=== PATIENT | male | born 1985 | race African-American/Black ===

== ENCOUNTER 2024-01-23 18:06 | Inpatient (IN) ==
--- NOTE | 2024-01-23 18:30 | Emergency Department Note ---
Impression & Plan Paranoid delusion ADMIT ED Provider Note HPI: History obtained from patient and patient's sister at the bedside. The patient is a 38-year-old gentleman who presents the emergency department with chief complaint of paranoid behavior. Patient presents with his sister at the bedside, she states that the patient has been exhibiting some paranoid behavior recently, he also has not been sleeping. Patient's sister states that the patient has been frequently moving to different family members houses "to get away from people". Patient states that he does believe that people are coming to try and hurt him that he was associated with in his past. He also states that at times he does think that he might be hearing voices that other people do not hear. Patient's sister states that the patient has been in trouble recently with the law because he has been trying to break into people's houses "to get help" when he believes that other people are trying to hurt him. Patient denies any suicidal or homicidal ideation, on arrival here to the ED the patient is calm and cooperative, he denies any recent drug or alcohol use. Patient does note that he recently had an inpatient psychiatric stay at [facility]. He states he was just discharged home several days ago. ROS: - Per HPI Differential Diagnosis: Paranoid delusions, acute psychosis, drug-induced psychosis, bipolar disorder with acute emil, amongst other potential pathologies. *Outpatient medications and allergy history reviewed. PE: General: Alert HEENT: Normocephalic, trachea midline Eyes: Extraocular eye movement is intact, no scleral erythema Pulmonary: Clear to auscultation bilaterally, no wheezing Cardio: Regular rate and rhythm GI: Abdomen is soft to palpation : No suprapubic tenderness MSK: No evidence of trauma or malformation of the extremities, no edema Skin: No evidence of rash Neuro: Alert, no focal deficits Psychiatric: Cooperative INDEPENDENT INTERPRETATIONS: EKG: (As interpreted by myself): Rate: 48 Rhythm: Sinus rhythm Intervals: Within normal limits ST changes: No ST elevation Time: 1834 Medical Decision Making: Lab work was obtained, there is a mild leukopenia at 4.53, hemoglobin is stable at 12.1, platelet count is normal, CMP does not show any evidence of any critical findings, EKG per my interpretation shows sinus bradycardia without any acute ischemic changes. Urine drug screen is positive for marijuana, alcohol is negative. COVID testing is negative. Patient was medically cleared to be assessed by case management for psychiatric placement. Patient is currently voluntary. He is not suicidal or homicidal however he does admit to some paranoid delusions, family has concern about his safety. Patient is agreeable for voluntary admission. Patient was assessed for admission by 3 S. and he was accepted. Patient was transferred to the behavioral health unit in stable condition for further care. Consultants/Discussions held with other healthcare providers: -Case management Diagnosis: 1. Paranoid delusions, acute 2. Insomnia, acute 3. Auditory hallucinations, acute Disposition: Admission to [facility] under 201 Isaak Polanco DO Emergency Medicine Past Med/Surg History Problem List (Updated 01/24/24 @ 00:47 by Isaak Polanco DO) Paranoid delusion (Acute) Social History Smoking Status: Current every day smoker Tobacco Type: E-cigarettes / Vaping Preferred Language: Syriac Feels Safe at Home: Yes Gender Identity: Male Results & Data (ED) Vital Signs Vital Signs - 24 hr 01/23/24 18:12 01/24/24 00:13 Temperature 36.6 C 36.8 C Temperature Source Temporal Artery Scan Oral Pulse Rate 68 Pulse Rate [Finger] 56 L Respiratory Rate 20 18 Respiratory Effort / Characteristics Non-Labored Non-Labored Spontaneous Respiratory Depth Normal Normal Blood Pressure 155/82 H Blood Pressure [Right Arm] 125/70 Blood Pressure Mean 106 Blood Pressure Mean [Right Arm] 88 Pulse Oximetry 99 98 Oxygen Delivery Method Room Air Room Air Sepsis Recent Fever Within 48 Hours No Sepsis New/Unexplained Change in Mental Status No Sepsis Action Taken by Nursing No Action Required Laboratory Data 01/23/24 18:54 01/23/24 18:54 Lab Results 01/23/24 01/23/24 01/23/24 Range/Units 18:54 20:25 22:00 WBC 4.53 L (4.8-10.8) K/ul RBC 4.06 L (4.70-6.10) M/uL Hgb 12.1 L (14.0-18.0) g/dl Hct 37.1 L (42.0-52.0) % MCV 91.4 (80.0-100.0) fL MCH 29.8 (25.0-34.0) pg MCHC 32.6 (32.0-36.0) g/dL RDW Std Deviation 40.5 (36.4-46.3) fL RDW Coeff of Yazmin 12.0 (11.5-14.5) % Plt Count 211 (130-400) K/uL MPV 9.7 (9.4-12.4) fL Immature Gran % (Auto) 0.2 % Neut % (Auto) 58.7 % Lymph % (Auto) 29.4 % Hand % (Auto) 8.8 % Eos % (Auto) 2.2 % Baso % (Auto) 0.7 % Neut # (Auto) 2.66 (1.40-6.50) K/uL Lymph # (Auto) 1.33 (1.20-3.40) K/uL Hand # (Auto) 0.40 (0.11-0.59) K/uL Eos # (Auto) 0.10 (0.00-0.50) K/uL Baso # (Auto) 0.03 (0.00-0.20) K/uL Immature Gran # (Auto) 0.01 (0.01-0.20) K/uL Sodium 139 (136-145) mmol/L Potassium 4.0 (3.5-5.1) mmol/L Chloride 104 (98-107) mmol/L Carbon Dioxide 30 (21-32) mmol/L Anion Gap 5 (3-11) BUN 17 (6-23) mg/dl Creatinine 1.12 (0.6-1.4) mg/dl Est Cr Clr Drug Dosing 99.1 ml/min eGFR 85.17 BUN/Creatinine Ratio 15.2 (10-20) Glucose 123 H (70-99(Fasting)) mg/dl Calcium 8.6 (8.6-10.3) mg/dl Total Bilirubin 0.3 (0.2-1.0) mg/dl AST 31 (13-39) U/L ALT 20 (7-52) U/L Alkaline Phosphatase 51 (34-104) U/L Total Protein 6.6 (6.0-8.3) gm/dl Albumin 4.0 (3.4-5.0) gm/dl Globulin 2.6 (2.5-4.0) gm/dl Albumin/Globulin Ratio 1.5 (0.9-2) TSH 1.014 (0.300-4.500) uIu/ml Urine Color Yellow Urine Appearance Clear (Clear) Urine pH 7.0 (4.5-7.5) Ur Specific [place] 1.020 (1.000-1.030) Urine Protein Negative (Negative) Urine Glucose (UA) Negative (Negative) Urine Ketones Trace H (Negative) Urine Blood Negative (Negative) Urine Nitrite Negative (Negative) Urine Bilirubin Negative (Negative) Urine Urobilinogen Negative (Negative) Ur Leukocyte Esterase Negative (Negative) Nasal Screen MRSA (PCR) Negative (Negative) Salicylates < 3.0 L (3.0-30) mg/dl Urine Opiates Screen Neg (Neg) Ur Methadone, Qual Neg (Neg) Urine Fentanyl Screen Neg (Neg) Acetaminophen < 3 L (10-30) ug/ml Urine Barbiturates Neg (Neg) Ur Phencyclidine (PCP) Neg (Neg) U Amphetamin/Meth Scrn Neg (Neg) MDMA (Ecstasy) Screen Neg (Neg) U Benzodiazepines Scrn Neg (Neg) Ur Cocaine Metabolite Neg (Neg) U Marijuana (THC) Screen Pos H (Neg) Ethyl Alcohol mg/dL < 10.0 (<10.0) mg/dl SARS-CoV-2, RNA, NAAT NEGATIVE (NEGATIVE) Discharge Plan Visit Data Chief Complaint: Mental Health Evaluation Stated Complaint: MENTAL HEALTH ED Provider: Isaak Polanco Discharge Problem: Paranoid delusion Forms Stand Alone Forms: My [facility], Suicide Prevention Resources Referrals Referrals: PCP,NO [Physician] -
[2024-01-23 19:13] LABS: Basophils # (auto) 0.03 K/uL (0.00-0.20); Basophils % (auto) 0.7 %; Eosinophils % (auto) 2.2 %; Hematocrit (blood only) 37.1 % (42.0-52.0); Hemoglobin 12.1 g/dl (14.0-18.0); Immature Granulocytes # (auto) 0.01 K/uL (0.01-0.20); Immature Granulocytes % (auto) 0.2 %; Lymphocytes # (auto) 1.33 K/uL (1.20-3.40); Lymphocytes % (auto) 29.4 %; Mean Corpuscular Hemoglobin 29.8 pg (25.0-34.0); Mean Corpuscular Hgb Conc 32.6 g/dL (32.0-36.0); Mean Corpuscular Volume 91.4 fL (80.0-100.0); Mean Platelet Volume 9.7 fL (9.4-12.4); Monocytes % (auto) 8.8 %; Neutrophils # (auto) 2.66 K/uL (1.40-6.50); Neutrophils % (auto) 58.7 %; Platelet Count 211 K/uL (130-400); RDW Standard Deviation 40.5 fL (36.4-46.3); Red Blood Count 4.06 M/uL (4.70-6.10); White Blood Count 4.53 K/ul (4.8-10.8)
[2024-01-23 19:31] LABS: Albumin Globulin Ratio 1.5 (0.9-2); BUN Creatinine Ratio 15.2 (10-20); Bilirubin,Total 0.3 mg/dl (0.2-1.0); Calcium 8.6 mg/dl (8.6-10.3); Creatinine Clr Calc Pharmacy 99.1 ml/min; Globulin 2.6 gm/dl (2.5-4.0); Total Protein 6.6 gm/dl (6.0-8.3)
[2024-01-23 19:33] LABS: Acetaminophen < 3 ug/ml (10-30); Salicylate < 3.0 mg/dl (3.0-30)
[2024-01-23 19:45] LABS: Thyroid Stimulating Hormone 1.014 uIu/ml (0.300-4.500)
[2024-01-23 20:45] LABS: Appearance Urine Clear (Clear); Bilirubin Urine Negative (Negative); Blood Urine Negative (Negative); Color Urine Yellow; Glucose Urine UA Negative (Negative); Ketones Urine Trace (Negative); Leukocyte Esterase Urine Negative (Negative); Nitrite Urine Negative (Negative); Protein Urine Negative (Negative); Urobilinogen Urine Negative (Negative)
[2024-01-23 21:29] LABS: Amphetamines+Metham, Urine Neg (Neg); Barbiturates, Urine Neg (Neg); Benzodiazepine, Urine Neg (Neg); Cocaine, Urine Neg (Neg); Fentanyl, Urine Neg (Neg); MDMA (Ecstacy), Urine Neg (Neg); Marijuana, Urine Pos (Neg); Methadone, Urine Neg (Neg); Opiate, Urine Neg (Neg); Phencyclidine, Urine Neg (Neg)
[2024-01-24] MEDS ORDERED: BISMUTH SUBSALICYLATE 262 MG CHEW PO PRN (01:13)
[2024-01-24] MEDS ORDERED: hydrOXYzine HCl 25 MG TAB PO PRN ×2 (01:13)
[2024-01-24] MEDS ORDERED: MAGNESIUM HYDROXIDE SUSP 30 ML UDC PO PRN (01:13)
[2024-01-24] MEDS ORDERED: ACETAMINOPHEN 325 MG TAB PO PRN (01:13)
[2024-01-24] MEDS ORDERED: ALUMINUM/MAGNESIUM SUSP 30 ML UDC PO PRN (01:13)
[2024-01-24] MEDS ORDERED: SODIUM CHLORIDE 0.65% NA SOLN 45 ML (OCEAN) PRN (01:13)
[2024-01-24] MEDS: BUPRENORPHINE/NALOXONE 8/2 MG TAB SL SCH (09:26)
--- NOTE | 2024-01-24 13:52 | History & Physical ---
Date of Service January 24, 2024 Impression / Recommendations Impression 38 yr old M admitted on a 201 for paranoia and bizarre behavior, following recent release from [facility] after 13 yrs. Presents with some paranoia, however is able to reality test adequately and with no other symptoms of psychosis observed during his stay thus far. No prior history of such symptoms and with what sounds like a relatively quick onset. Patient had recently been started on Adderall XR for ADHD, however it seems that these symptoms started some time after he was no longer taking it (would need to verify this). At this time it is unclear if this is a stimulant induced psychosis vs PTSD-related w/ recent [facility] release and very poor coping skills (ie brief psychotic episode) vs underlying psychotic disorder. He does not appear to have a thought disorder, however based on sisters report he is much improved now so would need to assess further. (1) Unspecified psychosis not due to a substance or known physiological condition: Plan Trial of guanfacine 0.5mg BID for possible ADHD as well as can help decrease any trauma reactions he may be experiencing and any anxiety relating to recent events - HR is low so may not be able to take, will reasses in AM Would defer antipsychotic as presentation is unclear and he is not currently overtly psychotic and does express wanting to avoid antipsychotics if possible, is aware however that if his symptoms return/worsen this medication would be indicated and is agreeable Continued inpatient hospitalization is medically necessary for ongoing monitoring and safety. The patient was admitted to the [facility] ([facility] mental health unit) on q15 min checks (behavioral with suicide precautions) for safety. The patient will participate in group, recreational, and milieu therapies and will be offered additional individual and family sessions as clinically appropriate. Overall, I spent a total of 60 minutes with this case, including review of chart, direct evaluation of the patient, counseling the patient, ordering medication, coordination with nursing, risk assessment, and documentation. Inventory Assets Strengths: supportive family Needs: adjusting to release from [facility] Suicide Risk Level Suicide Risk Level: Moderate (q15 min suicide checks) Risk Factors Assessment Male: Yes : No Do You Have Access To A Gun?: No Health Problems: No Mental Health Diagnoses: No Substance Use Disorders: Yes Previous Attempt: No Family History of Suicide: No Previous Psychiatric Hospitalization: Yes Hopelessness: No Protective Factors Assessment : No Responsible for Young Children: No Employed: No Stable Relationships: Yes Supportive Family: Yes Good Rapport with Provider: Yes Absence of Any Risk Factors Above: Yes Psychiatric History Identifying Data SINDI CHIRINOS is a 38-year-old M who currently lives with his sister, has no prior psychiatric history, and was admitted on 01/24/24 00:22 on a 201 voluntary commitment for concerns of psychosis with paranoia. Chief Complaint "I'm just trying to figure out what's going on". History of Present Illness 38 yr old M who presented to ED due to paranoia. Patients sister was present at bedside while he was in the ED - she reported that he has not been sleeping, has been paranoid and bizarre in behavior. Possibly has been hearing voices but this is unclear. Sister also reported that patient has been going into people's homes "to get help" from whoever he thinks is after him. Had recent admission at [facility] for similar reasons, discharged several days prior. Patient is pleasant and cooperatve throughout interview. He denies AVH, though does describe recent paranoia and some IOR. He describes this as all being related to a relationship he is in the past few months - it seems that he has been paranoid about his gf plotting against him in some way, or working together with someone that is after him. Describes statements made by her or things on her phone that he interprets as having a sinister meaning, says that this has been increasingly more distressing in particular as he has never experienced something like this before. Reports no prior psychiatric history. Says this all feels "overwhelming" because it is such a new experience. Also released from [facility] Apr 2023 after serving 13 years. Of note, patient is able to identify that his paranoia is not reality based - when he talks about it, he does seem to have difficulty with not becoming engrossed by the paranoia, but is observed to spontaneously recognize this and self-redirect. Denies paranoia or other symptoms of psychosis outside of this. Denies AVH. Denies depression. Denies anxiety outside of that relating to the above paranoia. He also reports that he was seeing an outpatient psychiatrist who diagnosed him with ADHD and started him on Adderall XR. Says that he was initially hesitant, but that once he started the medication he felt much "clearer" and able to focus without the excessive distractibility that usually interferes. Describes racing thoughts, inattention, restlessness and distractibility since childhood - says that after starting the medication this all improved and he felt calmer and better able to manage restlessness & impulsivity. Sleep reportedly also improved - has always had difficulty falling asleep, but when taking the Adderall XR was able to fall asleep more easily and felt well rested in the mornings. It seems that for some reason the prescription was stopped, possibly due to a missed appointment or something of that nature, and he describes these symptoms quickly returning again, including difficulty sleeping. Some time after this it seems that paranoia and odd behaviors started, with worsening leading up to hospitalization at [facility] at which time he was started on Zyprexa. Describes feeling overly sedated by it and slow, did not want to continue taking it once out of the hospital. Saw his psychiatrist at that point and it seems that they did not want to restart the Adderall due to his being hospitalized for psychosis. Did provide patient today with psychoeducation as to why this would be a concern, which he was receptive to. Patient says he would prefer not to take something like zyprexa due to significant negative effects, however is agreeable to whatever treatment plan is recommended. To note, while on the unit he has been calm and cooperative. Initially was in his room and guarded, but progressively acclimating and participating in groups. Has not been observed talking to himself, does not appear internally preoccupied - is overall interacting in the milieu appropriately. Past Psychiatric History Previous Psych History: [facility] recently, none prior Current Psychiatric Diagnosis: ADHD Outpatient Services: Was seeing psychiatrist this past year, none prior Previous Psych Admissions: see above Do You Have Access To A Gun?: No History of Previous Suicide Attempt: No Past Medication Trials: None Allergies Allergy/AdvReac Type Severity Reaction Status Date / Time No Known Allergies Allergy Unverified 01/24/24 01:10 Home Medications Medication Instructions Recorded Confirmed Type buprenorphine 8 mg-naloxone 2 mg 1 tab sublingual BID 01/24/24 01/25/24 History sublingual tablet olanzapine 2.5 mg tablet 2.5 mg PO BID 01/24/24 01/25/24 History Family History Family History of: Doesn't Know Alcohol History Hx of Alcohol Use Over the Past 12 Months: No (Once a week. 2-3 drinks per occasion) AUDIT Total Score: 3 Smoking Use Have You Smoked or Used Tobacco Products in the Last 30 Days: Yes tobacco type: e-cigarettes Smoking Status: Current every day smoker Substance History Hx of Prescription Med Misuse Over the Past 12 Months: No (denies) Hx of Over the Counter Med Misuse Over the Past 12 Months: No (denies) Hx of Inhalent Misuse Over the Past 12 Months: No (denies) Hx of Organic Substance Use Over the Past 12 Months: No (Marijuana few times per week) Hx of Illegal Substances/Street Drug Use Over Past 12 Months: No (denies) Problems as a Result of Past Substance Use: None Identified Suboxone 8mg BID, verified dosing from clinic Personal History Living Arrangements: Home Living Arrangements Comments: living with sister Stefani Highest Grade Completed: High School Graduate Marital Status: Single Number Of Children: 0 Beliefs That Will Affect Care: None Hx Legal Problems: Yes (served 13 yrs in [facility] for manufacturing with intent to distribute) Additional Comments: served 13 yrs in [facility] for manufacturing with intent to distribute, released on parole Apr 2023 Patient History Social History Smoking Status: Current every day smoker Tobacco Type: E-cigarettes / Vaping Preferred Language: Albanian Communication Ability: Effective Linux Architect Required: No Beliefs That Will Affect Care: None Feels Safe at Home: Yes Gender Identity: Male Assistive Devices: None Physical Exam Psychiatric: Orientation: alert and oriented x 3 Apperance: appropriately dressed, appropriately groomed and appeared stated age Eye Contact: + fair eye contact Motor Behavior: steady gait and station and no abnormal motor movements Speech: normal rate/rhythm/volume of speech (logorrheic but interruptible) Affect: + constricted affect Mood: + anxious mood Thought Process: goal directed thought process and + circumstantial thought process Thought Content: + paranoid (able to reality test appropriately however) Suicidal Thoughts: denies suicidal thoughts, denies suicidal plan and denies suicidal intent Homicidal Thoughts: denies homicidal thoughts Hallucinations: no auditory hallucinations and no visual hallucinations Cognition: recent memory grossly intact, remote memory grossly intact, attention grossly intact and language grossly intact Estimated Intelligence: average estimated intelligence Insight: + limited insight Judgment: + limited judgement Vital Signs (Past 24 Hours): Last Vital Signs Temp 36.6 C 01/24/24 06:38 Pulse 41 L 01/24/24 06:50 Resp 16 01/24/24 06:50 BP 121/72 01/24/24 06:39 Pulse Ox 100 01/24/24 01:43 O2 Del Method Room Air 01/24/24 01:43 Exam Statement: A physical exam was performed in the ED by Dr. Polanco for the purposes of medical clearance. I accept that physical as correct and adequate for the purposes of the inpatient physical exam. Results & Data ([facility]) Laboratory Results Laboratory Results - last 24 hr 01/23/24 01/23/24 01/23/24 18:54 20:25 22:00 WBC 4.53 L RBC 4.06 L Hgb 12.1 L Hct 37.1 L MCV 91.4 MCH 29.8 MCHC 32.6 RDW Std Deviation 40.5 RDW Coeff of Yazmin 12.0 Plt Count 211 MPV 9.7 Immature Gran % (Auto) 0.2 Neut % (Auto) 58.7 Lymph % (Auto) 29.4 [place] % (Auto) 8.8 Eos % (Auto) 2.2 Baso % (Auto) 0.7 Neut # (Auto) 2.66 Lymph # (Auto) 1.33 [place] # (Auto) 0.40 Eos # (Auto) 0.10 Baso # (Auto) 0.03 Immature Gran # (Auto) 0.01 Sodium 139 Potassium 4.0 Chloride 104 Carbon Dioxide 30 Anion Gap 5 BUN 17 Creatinine 1.12 Est Cr Clr Drug Dosing 99.1 eGFR 85.17 BUN/Creatinine Ratio 15.2 Glucose 123 H Calcium 8.6 Total Bilirubin 0.3 AST 31 ALT 20 Alkaline Phosphatase 51 Total Protein 6.6 Albumin 4.0 Globulin 2.6 Albumin/Globulin Ratio 1.5 TSH 1.014 Urine Color Yellow Urine Appearance Clear Urine pH 7.0 Ur Specific [place] 1.020 Urine Protein Negative Urine Glucose (UA) Negative Urine Ketones Trace H Urine Blood Negative Urine Nitrite Negative Urine Bilirubin Negative Urine Urobilinogen Negative Ur Leukocyte Esterase Negative Nasal Screen MRSA (PCR) Negative Salicylates < 3.0 L Urine Opiates Screen Neg Ur Methadone, Qual Neg Urine Fentanyl Screen Neg Acetaminophen < 3 L Urine Barbiturates Neg Ur Phencyclidine (PCP) Neg U Amphetamin/Meth Scrn Neg MDMA (Ecstasy) Screen Neg U Benzodiazepines Scrn Neg Ur Cocaine Metabolite Neg U Marijuana (THC) Screen Pos H U Marijuana THC Carboxy Pending Drug Screen Comment Pending Ethyl Alcohol mg/dL < 10.0 SARS-CoV-2, RNA, NAAT NEGATIVE Current Inpatient Medications Current Inpatient Medications: Current Inpatient Medications Acetaminophen (Acetaminophen 325 Mg Tab) 650 mg PO Q4H PRN PRN Reason: Headache or Minor Fever Stop: 02/23/24 01:12 Al Hydrox/Mg Hydrox/Simethicone (Aluminum/Magnesium Susp 30 Ml Udc) 30 ml PO Q4H PRN PRN Reason: GI Upset Stop: 02/23/24 01:12 Bismuth Subsalicylate (Bismuth Subsalicylate 262 Mg Chew) 2 tab PO Q30M PRN PRN Reason: Loose Stool/Diarrhea Stop: 02/23/24 01:12 Buprenorphine/Naloxone (Buprenorphine/Naloxone 8/2 Mg Tab) 1 tab SL BID [facility] Stop: 02/23/24 08:59 Last Admin: 01/24/24 09:26 Dose: 1 tab Hydroxyzine HCl (Hydroxyzine Hcl 25 Mg Tab) 50 mg PO HSZ PRN PRN Reason: Insomnia Stop: 02/23/24 01:12 Hydroxyzine HCl (Hydroxyzine Hcl 25 Mg Tab) 25 mg PO Q4H PRN PRN Reason: Anxiety Stop: 02/23/24 01:12 Magnesium Hydroxide (Magnesium Hydroxide Susp 30 Ml Udc) 30 ml PO DAILY PRN PRN Reason: Constipation Stop: 02/23/24 01:12 Miscellaneous (Remove Nicoderm Patch) 1 each N/A DAILY@0859 [facility] Stop: 02/24/24 08:58 Nicotine (Nicotine 21 Mg/24 Hr Tdsy) 1 patch TD QAM [facility] Stop: 02/23/24 13:29 Nicotine Polacrilex (Nicotine Polacrilex 2 Mg Gum) 2 piece MT PRN PRN PRN Reason: Nicotine Withdrawal Symptoms Stop: 02/23/24 01:12 Sodium Chloride (Sodium Chloride 0.65% Na Soln 45 Ml ([place])) 1 - 2 sprays NA PRN PRN PRN Reason: Nasal Dryness/Congestion Stop: 02/23/24 01:12
[2024-01-24] MEDS: NICOTINE 21 MG/24 HR TDSY TD SCH (14:30)
--- NOTE | 2024-01-24 15:10 | Electrocardiogram Report ---
Test Reason : Blood Pressure : */* mmHG Vent. Rate : 48 BPM Atrial Rate : 48 BPM P-R Int : 138 ms QRS Dur : 100 ms QT Int : 406 ms P-R-T Axes : 68 93 57 degrees QTcB Int : 362 ms Sinus bradycardia Rightward axis Incomplete right bundle branch block Borderline ECG No previous ECGs available Confirmed by Juan Cheung ([id number]) on 01/24/2024 3:10:07 PM Referred By: REFERRED SELF Confirmed By: Juan Cheung
[2024-01-24] MEDS ORDERED: traZODone HCL 50 MG TAB PO PRN (19:08)
[2024-01-24] MEDS: guanFACINE HCL 1 MG TAB PO SCH (21:45)
[2024-01-25] MEDS: NICOTINE POLACRILEX 2 MG GUM MT PRN (09:44)
--- NOTE | 2024-01-25 16:11 | Psychiatric Progress Note ---
Date of Service January 25, 2024 Impression / Recommendations Impression 38 yr old M admitted on a 201 for paranoia and bizarre behavior, following recent [facility] from [facility] 13 y[facility]. Presents with some paranoia, however is able to reality test adequately and with no other symptoms of psychosis observed during his stay thus far. No prior history of such symptoms and with what sounds like a relatively quick onset. Patient had previously been started on Adderall XR for ADHD, however it seems that these symptoms started some time after he was no longer taking it At this time it is unclear if this is a stimulant induced psychosis vs PTSD- related w/ recent [facility] release and very poor coping skills (ie brief psychotic episode) vs underlying psychotic disorder. Possibility of lack of sleep following adderal xr discontinuation as contributing factor as well, though as per PDMP it appears that his last fill was few months ago. He does not appear to have a thought disorder as far as has been observed while here. Possibility of misrepresentation in order to obtain stimulant rx must be considered, though patient does indeed present with notable symptoms of ADHD and his report of response to medication is consistent. 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 Discussed risks of addiction potential & risks of psychosis if there is indeed underlying psychosis, patient agreeable to trial while in a safe environment. Patient was able to reasonably & spontaneously discuss that if any concerning symptoms are observed, this medication will be discontinued and antipsychotic started. 01/24/2024: The patient was admitted to the [facility] ([facility]) on q15 min checks (behavioral with suicide precautions) for safety. The patient will participate in group, recreational, and milieu therapies and will be offered additional individual and family sessions as clinically appropriate. Trial of guanfacine 0.5mg BID for possible ADHD as well as can help decrease any trauma reactions he may be experiencing and any anxiety relating to recent events - HR is low so may not be able to take, will reasses in AM Would defer antipsychotic as presentation is unclear and he is not currently overtly psychotic and does express wanting to avoid antipsychotics if possible, is aware however that if his symptoms return/worsen this medication would be indicated and is agreeable Overall, I spent a total of 50 minutes with this case, including review of chart, direct evaluation of the patient, counseling the patient, ordering medication, coordination with nursing, risk assessment, and documentation. Risk Factors Assessment Do You Have Access To A Gun?: No Protective Factors Assessment Employed: No Interval History Identifying Information SINDI CHIRINOS is a 38-year-old M who currently lives with his sister, has no prior psychiatric history, and was admitted on 01/24/24 00:22 on a 201 voluntary commitment for concerns of psychosis with paranoia. Chief Complaint "I'm just trying to figure this out". Review of Systems Sleep Information Total Hours of Sleep: 5 Sleep Comments: Admitted early in shift Meal Information Percent Meal Consumed - Breakfast: 100 Percent Meal Consumed - Lunch: 100 Percent Meal Consumed - Dinner: 100 Nutrition Comment: pt. declined but requests that meal be saved. Meal dated, labeled and refrigerated. Subjective Subjective Patient was seen & assessed and interval progress reviewed with nursing and social work. Patient presents as less preoccupied with paranoia than he was yesterday - does several times start to talk about it but quickly redirects. Acknowledges that he knows if he starts talking or thinking about it too much he may become engrossed in it again. States "it doesn't even matter if it's real or not, it's just not a good situation for me". DIscussed in more detail how it has been adjusting to release from [facility] after 13 yrs, in particular symptoms of PTSD - hypervigilant, avoidance, affective reactivity, difficulty trusting others, feeling on edge, easily feeling attacked or threatened. Is able to reasonably discuss all of this and demonstrates some insight about the barriers facing him. Also reviewed prior history of ADHD - including restlessness, impulsivity, inattention, distractibility, difficulty maintaining focus, difficulty prioritizing, talkativeness, interrupting others, difficulty relaxing. Patient describes experiencing these symptoms throughout life. He describes multiple medication trials prior to Adderall XR - reports that when started this felt like he could focus his thoughts, less "noise" in his head and sleep improved significantly. Patient describes some sort of issue with his appointment and script being stopped - reports that after this sleep again worsened, started to feel restless, began feeling overwhelmed by stressors including that with gf. He acknowledges that his behavior became bizarre however as noted above. To note however, he has not been observed to demonstrate any symptoms of psychosis since admission here. Has been appropriate whenever observed. Was unable to take guanfacine due to bradycardia (reportedly chronic). Visible in the milieu - interacting with peers and staff appropriately, participating in groups. Physical Exam Psychiatric Orientation: alert and oriented x 3 Apperance: appropriately dressed, appropriately groomed and appeared stated age Eye Contact: good eye contact Motor Behavior: steady gait and station and no abnormal motor movements; no psychomotor agitation Speech: normal rate/rhythm/volume of speech Affect: + constricted affect Mood: + anxious mood; no depressed mood Thought Process: goal directed thought process, + circumstantial thought process and + perseveration Thought Content: + paranoid (minimally) and reality based without delusions (outside of minimal fleeting paranoia) Suicidal Thoughts: denies suicidal thoughts, denies suicidal plan and denies suicidal intent Homicidal Thoughts: denies homicidal thoughts Hallucinations: no auditory hallucinations and no visual hallucinations Cognition: recent memory grossly intact, remote memory grossly intact, attention grossly intact and language grossly intact Estimated Intelligence: average estimated intelligence Insight: + limited insight Judgment: + limited judgement Vital Signs (Past 24 Hours) Last Vital Signs Temp 36.9 C 01/25/24 06:41 Pulse 55 L 01/25/24 06:42 Resp 16 01/25/24 06:41 BP 115/78 01/25/24 06:42 Pulse Ox 100 01/24/24 01:43 O2 Del Method Room Air 01/24/24 01:43 Results & Data ([facility]) Current Inpatient Medications Current Inpatient Medications: Current Inpatient Medications Acetaminophen (Acetaminophen 325 Mg Tab) 650 mg PO Q4H PRN PRN Reason: Headache or Minor Fever Stop: 02/23/24 01:12 Al Hydrox/Mg Hydrox/Simethicone (Aluminum/Magnesium Susp 30 Ml Udc) 30 ml PO Q4H PRN PRN Reason: GI Upset Stop: 02/23/24 01:12 Bismuth Subsalicylate (Bismuth Subsalicylate 262 Mg Chew) 2 tab PO Q30M PRN PRN Reason: Loose Stool/Diarrhea Stop: 02/23/24 01:12 Buprenorphine/Naloxone (Buprenorphine/Naloxone 8/2 Mg Tab) 1 tab SL BID [facility] Stop: 02/23/24 08:59 Last Admin: 01/25/24 09:43 Dose: 1 tab Guanfacine HCl (Guanfacine Hcl 1 Mg Tab) 0.5 mg PO BID [facility] Stop: 02/23/24 20:59 Last Admin: 01/25/24 09:44 Dose: Not Given Hydroxyzine HCl (Hydroxyzine Hcl 25 Mg Tab) 50 mg PO HSZ PRN PRN Reason: Insomnia Stop: 02/23/24 01:12 Hydroxyzine HCl (Hydroxyzine Hcl 25 Mg Tab) 25 mg PO Q4H PRN PRN Reason: Anxiety Stop: 02/23/24 01:12 Magnesium Hydroxide (Magnesium Hydroxide Susp 30 Ml Udc) 30 ml PO DAILY PRN PRN Reason: Constipation Stop: 02/23/24 01:12 Miscellaneous (Remove Nicoderm Patch) 1 each N/A DAILY@0859 [facility] Stop: 02/24/24 08:58 Last Admin: 01/25/24 09:43 Dose: 1 each Nicotine (Nicotine 21 Mg/24 Hr Tdsy) 1 patch TD QAM [facility] Stop: 02/23/24 13:29 Last Admin: 01/25/24 09:44 Dose: Not Given Nicotine Polacrilex (Nicotine Polacrilex 2 Mg Gum) 2 piece MT PRN PRN PRN Reason: Nicotine Withdrawal Symptoms Stop: 02/23/24 01:12 Last Admin: 01/25/24 09:44 Dose: 2 piece Sodium Chloride (Sodium Chloride 0.65% Na Soln 45 Ml ([place])) 1 - 2 sprays NA PRN PRN PRN Reason: Nasal Dryness/Congestion Stop: 02/23/24 01:12 Trazodone HCl (Trazodone Hcl 50 Mg Tab) 50 mg PO HS PRN PRN Reason: Insomnia Stop: 02/23/24 21:59 Post Discharge Appointments Primary Care Physician Name Of Family Doctor/PCP: Thu Estrada Specialist Name of Specialist: [facility] Phone Number for Specialist: [phone] Date of Appointment with Specialist: 01/29/24 Time of Appointment with Specialist: 3:15PM Specialty Appointment Comment: [address] [place] [id number]
[2024-01-26] MEDS: DEXTROAMPHETAMINE/AMPHETAMINE ER 20 MG CAP PO SCH (12:45)
[2024-01-26 13:31] LABS: Marijuana Quant, GCMS Urine 42 ng/mL (<5)
--- NOTE | 2024-01-26 16:05 | Psychiatric Progress Note ---
Date of Service January 26, 2024 Impression / Recommendations Impression 38 yr old M admitted on a 201 for paranoia and bizarre behavior, following recent release from longterm after 13 yrs. Presents with some paranoia, however is able to reality test adequately and with no other symptoms of psychosis observed during his stay thus far. No prior history of such symptoms and with what sounds like a relatively quick onset. Patient had previously been started on Adderall XR for ADHD, however it seems that these symptoms started some time after he was no longer taking it At this time cause of symptoms is unclear - however based on his and sisters report today, there's a possibility of agitated delirium in the context of what sounds like a relatively severe tooth infection. If so, this would correlate with his symptoms clearing now that he had a course of Abx. He does present as progressively more linear & able to reality test prior paranoia spontaneously - sister did express concern about Adderall given recent events and patient also amenable to medication changing if this is indicated. Discussed monitoring and reassessing followign labs & CT head to ensure no ongoing infection. 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 CT head & repeat CBC ordered to rule out ongoing infection given patient reporting ongoing symptoms in ear canal on side of recent tooth infection. 01/25/24 Discussed careful trial of low dose Adderall XR - as noted above I am not clear as to cause of his presentation, however as he has been forthcorming thus far and engaged in treatment, as well as observable presence of significant ADHD and lack of observable psychosis (outside of mild paranoia regarding gf) would carefully trial. Discussed risks of addiction potential & risks of psychosis if there is indeed underlying psychosis, patient agreeable to trial while in a safe environment. Patient was able to reasonably & spontaneously discuss that if any concerning symptoms are observed, this medication will be discontinued and antipsychotic started. 01/24/2024: The patient was admitted to the [facility] ([facility]) on q15 min checks (behavioral with suicide precautions) for safety. The patient will participate in group, recreational, and milieu therapies and will be offered additional individual and family sessions as clinically appropriate. Trial of guanfacine 0.5mg BID for possible ADHD as well as can help decrease any trauma reactions he may be experiencing and any anxiety relating to recent even ts - HR is low so may not be able to take, will reasses in AM Would defer antipsychotic as presentation is unclear and he is not currently overtly psychotic and does express wanting to avoid antipsychotics if possible, is aware however that if his symptoms return/worsen this medication would be indicated and is agreeable Overall, I spent a total of 80 minutes with this case, including review of chart, direct evaluation of the patient, counseling the patient, ordering medication, coordinating with patient's family, coordination with nursing, ordering imaging and labs, risk assessment, and documentation. Risk Factors Assessment Do You Have Access To A Gun?: No Protective Factors Assessment Employed: No Interval History Identifying Information SINDI CHIRINOS is a 38-year-old M who currently lives with his sister, has no prior psychiatric history, and was admitted on 01/24/24 00:22 on a 201 voluntary commitment for concerns of psychosis with paranoia. Chief Complaint "I've been on the phone with my sister". Review of Systems Sleep Information Total Hours of Sleep: 4.30 Sleep Comments: Admitted early in shift Meal Information Percent Meal Consumed - Breakfast: 100 Percent Meal Consumed - Lunch: 100 Percent Meal Consumed - Dinner: 100 Nutrition Comment: pt. declined but requests that meal be saved. Meal dated, labeled and refrigerated. Subjective Subjective Patient was seen & assessed and interval progress reviewed with treatment team. Patient presents as linear & logical today - was able to discuss recent paranoia with notably more clarity. Was able to meaningfully discuss how he would read into various sounds - ie would hear a noise and think it was someone coming after him. Also able to discuss how he was misconstruing environmental stimuli and behaving oddly (running through people yards for example). States that this has never happened to him before and was a scary experience. Of note, describes a relatively quick progression of symptoms and it seems that these symptoms began some time after stopping stimulant. He also reports today that when he was at [place] he had a significant infection in his jaw due to losing a tooth some time ago (injury from years prior) - describes right side of face being swollen and acutely painful, was given antibiotics which seems to have helped. He reports ongoing symptoms however near the area - feels a pressure in his R ear, at times feels like something is popping and describes the feeling as similar to the pressure one feels when under water. No fevers, no point tenderness. Also spoke to his sister Natalya today for 39 minutes [phone], for collateral. She corroborated that these symptoms are new and unusual for him. The family was worried that the Adderall had caused these symptoms, however sister also reports that he has been insistent on not having taken it for some time prior (correlates with pdmp). Also describes what sounds like a quick presentation of paranoia and bizarre behavior - describes his fairly quickly becoming loose in association, not sleeping, running through people's yards and at times possibly seeing/hearing things. She also corroborates that he did indeed have a tooth infection and that there was possibly some concern of ongoing infection on f/u labs with pcp. Sister also reports that patient has always been "a little different", however describes this as having high attachment to sisters - patient indeed is often seen on the phone talking to sisters and she says this has always been the case with him. However no history of psychosis for patient, though some unclear psychiatric history in family is reported by her. Physical Exam Psychiatric Orientation: alert and oriented x 3 Apperance: appropriately dressed, appropriately groomed and appeared stated age Eye Contact: good eye contact and + fair eye contact Motor Behavior: steady gait and station and no abnormal motor movements; no psychomotor agitation Speech: normal rate/rhythm/volume of speech Affect: + constricted affect Mood: no depressed mood and no anxious mood Thought Process: goal directed thought process Thought Content: reality based without delusions (able to reality test prior paranoia) Suicidal Thoughts: denies suicidal thoughts, denies suicidal plan and denies suicidal intent Homicidal Thoughts: denies homicidal thoughts Hallucinations: no auditory hallucinations and no visual hallucinations Cognition: recent memory grossly intact, remote memory grossly intact, attention grossly intact and language grossly intact Estimated Intelligence: average estimated intelligence Insight: + limited insight Judgment: + limited judgement Vital Signs (Past 24 Hours) Last Vital Signs Temp 36.6 C 01/26/24 06:39 Pulse 56 L 01/26/24 06:41 Resp 16 01/26/24 06:39 BP 116/70 01/26/24 06:41 Pulse Ox 100 01/24/24 01:43 O2 Del Method Room Air 01/24/24 01:43 Results & Data ([facility]) Laboratory Results Laboratory Results - last 24 hr 01/23/24 20:25 U Marijuana THC Carboxy 42 H Drug Screen Comment SEE NOTE Current Inpatient Medications Current Inpatient Medications: Current Inpatient Medications Acetaminophen (Acetaminophen 325 Mg Tab) 650 mg PO Q4H PRN PRN Reason: Headache or Minor Fever Stop: 02/23/24 01:12 Al Hydrox/Mg Hydrox/Simethicone (Aluminum/Magnesium Susp 30 Ml Udc) 30 ml PO Q4H PRN PRN Reason: GI Upset Stop: 02/23/24 01:12 Amphetamine/Dextroamphetamine (Dextroamphetamine/Amphetamine Er 20 Mg Cap) 20 mg PO DAILY [facility] Stop: 02/09/24 11:29 Last Admin: 01/26/24 12:45 Dose: 20 mg Bismuth Subsalicylate (Bismuth Subsalicylate 262 Mg Chew) 2 tab PO Q30M PRN PRN Reason: Loose Stool/Diarrhea Stop: 02/23/24 01:12 Buprenorphine/Naloxone (Buprenorphine/Naloxone 8/2 Mg Tab) 1 tab SL BID [facility] Stop: 02/23/24 08:59 Last Admin: 01/26/24 09:02 Dose: 1 tab Guanfacine HCl (Guanfacine Hcl 1 Mg Tab) 0.5 mg PO BID [facility] Stop: 02/23/24 20:59 Last Admin: 01/26/24 09:02 Dose: Not Given Hydroxyzine HCl (Hydroxyzine Hcl 25 Mg Tab) 50 mg PO HSZ PRN PRN Reason: Insomnia Stop: 02/23/24 01:12 Hydroxyzine HCl (Hydroxyzine Hcl 25 Mg Tab) 25 mg PO Q4H PRN PRN Reason: Anxiety Stop: 02/23/24 01:12 Magnesium Hydroxide (Magnesium Hydroxide Susp 30 Ml Udc) 30 ml PO DAILY PRN PRN Reason: Constipation Stop: 02/23/24 01:12 Miscellaneous (Remove Nicoderm Patch) 1 each N/A DAILY@0859 [facility] Stop: 02/24/24 08:58 Last Admin: 01/26/24 09:04 Dose: 1 each Nicotine (Nicotine 21 Mg/24 Hr Tdsy) 1 patch TD QAM [facility] Stop: 02/23/24 13:29 Last Admin: 01/26/24 09:02 Dose: 1 patch Nicotine Polacrilex (Nicotine Polacrilex 2 Mg Gum) 2 piece MT PRN PRN PRN Reason: Nicotine Withdrawal Symptoms Stop: 02/23/24 01:12 Last Admin: 01/25/24 09:44 Dose: 2 piece Sodium Chloride (Sodium Chloride 0.65% Na Soln 45 Ml ([place])) 1 - 2 sprays NA PRN PRN PRN Reason: Nasal Dryness/Congestion Stop: 02/23/24 01:12 Trazodone HCl (Trazodone Hcl 50 Mg Tab) 50 mg PO HS PRN PRN Reason: Insomnia Stop: 02/23/24 21:59 Mental Health & Subst Abuse Tx Psychiatrist [facility] Date Of Appointment With Psychiatric Provider: 03/12/24 Time of Appointment with Psychiatrist: 12:30pm Psychiatric Appointment Comment: in-person Therapist Name of Therapist: MADDY Eaton Therapist's Date of Therapist Appointment: 02/26/24 Time of Therapist Appointment: 10:00am Therapy Appointment Comment: in-person Post Discharge Appointments Primary Care Physician Name Of Family Doctor/PCP: Thu Estrada Specialist Name of Specialist: [facility] Phone Number for Specialist: [phone] Date of Appointment with Specialist: 01/29/24 Time of Appointment with Specialist: 3:15PM Specialty Appointment Comment: [facility] [id number] [place] [id number]
--- NOTE | 2024-01-26 19:07 | CT Scan Report ---
CT SCAN OF THE BRAIN WITHOUT IV CONTRAST CLINICAL HISTORY: Right-sided ear pain. Recent dental abscess. COMPARISON STUDY: No priors. TECHNIQUE: Unenhanced axial CT scan of the brain is performed from the vertex to the skull base. A d ose lowering technique was utilized adhering to the principles of ALARA. CT DOSE: 547.75 mGy.cm FINDINGS: Brain parenchyma: The brain parenchyma is normal in appearance. There is no hemorrhage, mass effect, or evidence of acute territorial ischemia by CT criteria. Carter-white matter differentiation is preser gloria. No extra-axial fluid collection is seen. Ventricles, sulci, cisterns: Normal in configuration. Intracranial vasculature: The visualized intracranial vasculature at the skull base is normal in appe arance. Calvarium: Unremarkable. Sinuses and mastoids: The visualized paranasal sinuses are clear. The mastoid air cells are well pneu matized. Orbits: The bony orbits are grossly intact. IMPRESSION: No acute intracranial abnormality. ACT 112: Negative or not required by law. Electronically signed by: Monty Sales M.D. 01/26/2024 7:06 PM
[2024-01-26 20:25] LABS: Basophils # (auto) 0.04 K/uL (0.00-0.20); Basophils % (auto) 0.8 %; Eosinophils # (auto) 0.08 K/uL (0.00-0.50); Eosinophils % (auto) 1.6 %; Hematocrit (blood only) 41.3 % (42.0-52.0); Hemoglobin 13.2 g/dl (14.0-18.0); Immature Granulocytes # (auto) 0.01 K/uL (0.01-0.20); Immature Granulocytes % (auto) 0.2 %; Lymphocytes # (auto) 1.11 K/uL (1.20-3.40); Lymphocytes % (auto) 22.4 %; Mean Corpuscular Hemoglobin 29.6 pg (25.0-34.0); Mean Corpuscular Volume 92.6 fL (80.0-100.0); Mean Platelet Volume 9.6 fL (9.4-12.4); Monocytes # (auto) 0.44 K/uL (0.11-0.59); Monocytes % (auto) 8.9 %; Neutrophils # (auto) 3.27 K/uL (1.40-6.50); Neutrophils % (auto) 66.1 %; Platelet Count 234 K/uL (130-400); RDW Coefficient of Variation 11.9 % (11.5-14.5); RDW Standard Deviation 40.2 fL (36.4-46.3); Red Blood Count 4.46 M/uL (4.70-6.10); White Blood Count 4.95 K/ul (4.8-10.8)
--- NOTE | 2024-01-27 09:44 | Psychiatric Progress Note ---
Date of Service January 27, 2024 Impression / Recommendations Impression SINDI CHIRINOS is a 38-year-old man who currently lives in [place] with his sister, has no prior psychiatric history, and was admitted on 01/24/24 00:22 on a 201 voluntary commitment for concerns of psychosis with paranoia. Diagnostically consistent with unspecified psychosis with differential including cannabis-induced vs stimulant-induced va suboxone withdrawal (seems unlikely as reports no recent issues with missing doses) vs acute stress disorder vs emil (though no evidence of any manic symptoms today and sleeping >6 hours per night). No evidence for current depressive episode with psychotic features nor primary psychotic disorder nor d/t medical causes (CBC and head CT ruled out concern for possible infection given recent dental abscess). Today significant lessening of psychosis and paranoia though also minimizes some of his recent symptoms it seems due to his goal of discharging soon. Suspect cannabis-induced psychosis. He is not interested in an antipsychotic, is agreeable to trial of sertraline given his sense that stress caused his symptoms and contributed to his desire to use cannabis to relax. Will discontinue Adderall due to concern that this could contribute to psychosis, this could be reconsidered in the future if paranoia/psychosis remains resolved. Also discussed option for Strattera, he prefers sertraline trial. Guanfacine discontinued as unable to safely use due to his low resting HR and low BP at baseline. Discussed medication treatment options in detail. Discussed risks, benefits and alternatives. Patient would like to start and consented to sertraline for anxiety and acute stress disorder/PTSD. Reviewed side effects including but not limited to: GI, BARRIOS, sexual side effects, and counseled on black box warning of potential for emergence of or increased SI and need to let staff know should this occur or should they feel unsafe. Also discussed importance of seeking emergency care following discharge if this side effect occurs in the future. The patient's use history of cannabis and negative consequences of recent psychosis suggests possible substance use disorder/substance use involvement in symptoms. Motivational interviewing was done as a brief intervention. Intervention was greater than 5 minutes in length and included assessing readiness to quit, advice on how to reduce or abstain and to set a specific goal for this hospitalization. workers compensation attorney will also assist in anticipating barriers to reducing or abstaining from substance use and in problem-solving for solutions to those problems while arranging for referral to appropriate treatment. The patient is in contemplative stage with regards to transtheoretical model of change. Recommended avoiding consumption due to potential for psychosis and potential for worsening psychiatric symptoms. MNPR due to recent paranoia/psychosis Overall, I spent a total of 60 minutes on this case including meeting with the patient, reviewing the chart, nursing report, multidisciplinary team meeting, orders, and documentation. 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 The patient will participate in group, recreational, and milieu therapies and will be offered additional individual and family sessions as clinically appropriate. Trial of guanfacine 0.5mg BID for possible ADHD as well as can help decrease any trauma reactions he may be experiencing and any anxiety relating to recent events - HR is low so may not be able to take, will reasses in AM Would defer antipsychotic as presentation is unclear and he is not currently overtly psychotic and does express wanting to avoid antipsychotics if possible, is aware however that if his symptoms return/worsen this medication would be indicated and is agreeable Inventory Assets Strengths: supportive family, willing to consider treatment options Needs: adjusting to release from [facility], diagnostic clarification, additional supports Suicide Risk Level Suicide Risk Level: Moderate (q15 min suicide checks) ( recent psychosis/paranoia, denying SI, feels safe in the hospital, feels able to ask for support) Risk Factors Assessment Male: Yes : No Do You Have Access To A Gun?: No Health Problems: No Mental Health Diagnoses: No Substance Use Disorders: Yes Previous Attempt: No Family History of Suicide: No Previous Psychiatric Hospitalization: Yes Hopelessness: No Protective Factors Assessment : No Responsible for Young Children: No Employed: No Stable Relationships: Yes Supportive Family: Yes Good Rapport with Provider: Yes Absence of Any Risk Factors Above: Yes Interval History Identifying Information SINDI CHIRINOS is a 38-year-old man who currently lives in [place] with his sister, has no prior psychiatric history, and was admitted on 01/24/24 00:22 on a 201 voluntary commitment for concerns of psychosis with paranoia. Chief Complaint "It could have been in my head but I think I just got caught up with her behaviors, she was making me question everything with what she said". Review of Systems Sleep Information Total Hours of Sleep: 6.30 Sleep Comments: Meal Information Percent Meal Consumed - Breakfast: 100 Percent Meal Consumed - Lunch: 100 Percent Meal Consumed - Dinner: 100 Nutrition Comment: Subjective Subjective Patient was seen & assessed and interval progress reviewed with treatment team nursing and social work. Attending groups. Irritable last evening after on the phone. Today he reviews his past history with me, denies any history of psychosis, emil nor depression nor recent symptoms of these. Per H&P a history of poor sleep but no other notable symptoms of emil. However, he does acknowledge significant stress recently related to the relationship with his girlfriend. N otes that she struggles with mental health conditions and he thinks she may have been unfaithful or doing other things. He reflects that "hypothetically if she is trying to cause me harm, I'd rather remove myself from the situation then risk it". He's decided he'd rather end the relationship and move forward. He does acknowledge that it's possible his cannabis use contributed to possible paranoia/psychosis as he was using it intermittently. He remains focused on goal of discharging soon but is willing to make a few more medication adjustments if that means his sister will feel like he's engaging with care. He requests that I call her. He does seem to minimize or forget some recent events such as denying any history of psychiatric medications except Adderall when H&P notes he was started on olanzapine at [facility] recently. Physical Exam Psychiatric Orientation: alert and oriented x 3 Apperance: appropriately dressed and appropriately groomed Eye Contact: good eye contact Motor Behavior: no abnormal motor movements; no psychomotor agitation Speech: normal rate/rhythm/volume of speech Affect: + constricted affect Mood: + anxious mood; no depressed mood Thought Process: + circumstantial thought process and + perseveration Thought Content: + preoccupation and reality based without delusions Suicidal Thoughts: denies suicidal thoughts Homicidal Thoughts: denies homicidal thoughts Hallucinations: no auditory hallucinations and no visual hallucinations Cognition: recent memory grossly intact, remote memory grossly intact and language grossly intact Insight: + limited insight Judgment: + limited judgement Vital Signs (Past 24 Hours) Last Vital Signs Temp 36.1 C L 01/27/24 06:53 Pulse 55 L 01/27/24 06:53 Resp 16 01/27/24 06:53 BP 102/66 01/27/24 06:53 Pulse Ox 96 01/27/24 06:53 O2 Del Method Room Air 01/27/24 06:53 Results & Data ([facility]) Laboratory Results Laboratory Results - last 24 hr 01/23/24 01/26/24 20:25 19:54 WBC 4.95 RBC 4.46 L Hgb 13.2 L Hct 41.3 L MCV 92.6 MCH 29.6 MCHC 32.0 RDW Std Deviation 40.2 RDW Coeff of Yazmin 11.9 Plt Count 234 MPV 9.6 Immature Gran % (Auto) 0.2 Neut % (Auto) 66.1 Lymph % (Auto) 22.4 Hickory % (Auto) 8.9 Eos % (Auto) 1.6 Baso % (Auto) 0.8 Neut # (Auto) 3.27 Lymph # (Auto) 1.11 L [place] # (Auto) 0.44 Eos # (Auto) 0.08 Baso # (Auto) 0.04 Immature Gran # (Auto) 0.01 U Marijuana THC Carboxy 42 H Drug Screen Comment SEE NOTE TB Test (QFT) Gold Plus Pending TB Test (QFT) Nil Pending TB Test Mitogen - Nil Pending TB Test Ag - Nil 1 Pending TB Test Ag - Nil 2 Pending Current Inpatient Medications Current Inpatient Medications: Current Inpatient Medications Acetaminophen (Acetaminophen 325 Mg Tab) 650 mg PO Q4H PRN PRN Reason: Headache or Minor Fever Stop: 02/23/24 01:12 Al Hydrox/Mg Hydrox/Simethicone (Aluminum/Magnesium Susp 30 Ml Udc) 30 ml PO Q4H PRN PRN Reason: GI Upset Stop: 02/23/24 01:12 Amphetamine/Dextroamphetamine (Dextroamphetamine/Amphetamine Er 20 Mg Cap) 20 mg PO DAILY SHASHANK Stop: 02/09/24 11:29 Last Admin: 01/26/24 12:45 Dose: 20 mg Bismuth Subsalicylate (Bismuth Subsalicylate 262 Mg Chew) 2 tab PO Q30M PRN PRN Reason: Loose Stool/Diarrhea Stop: 02/23/24 01:12 Buprenorphine/Naloxone (Buprenorphine/Naloxone 8/2 Mg Tab) 1 tab SL BID SHASHANK Stop: 02/23/24 08:59 Last Admin: 01/26/24 20:38 Dose: 1 tab Guanfacine HCl (Guanfacine Hcl 1 Mg Tab) 0.5 mg PO BID SHASHANK Stop: 02/23/24 20:59 Last Admin: 01/27/24 09:29 Dose: Not Given Hydroxyzine HCl (Hydroxyzine Hcl 25 Mg Tab) 50 mg PO HSZ PRN PRN Reason: Insomnia Stop: 02/23/24 01:12 Hydroxyzine HCl (Hydroxyzine Hcl 25 Mg Tab) 25 mg PO Q4H PRN PRN Reason: Anxiety Stop: 02/23/24 01:12 Magnesium Hydroxide (Magnesium Hydroxide Susp 30 Ml Udc) 30 ml PO DAILY PRN PRN Reason: Constipation Stop: 02/23/24 01:12 Miscellaneous (Remove Nicoderm Patch) 1 each N/A DAILY@0859 [facility] Stop: 02/24/24 08:58 Last Admin: 01/27/24 09:29 Dose: 1 each Nicotine (Nicotine 21 Mg/24 Hr Tdsy) 1 patch TD QAM SHASHANK Stop: 02/23/24 13:29 Last Admin: 01/27/24 09:29 Dose: 1 patch Nicotine Polacrilex (Nicotine Polacrilex 2 Mg Gum) 2 piece MT PRN PRN PRN Reason: Nicotine Withdrawal Symptoms Stop: 02/23/24 01:12 Last Admin: 01/25/24 09:44 Dose: 2 piece Sodium Chloride (Sodium Chloride 0.65% Na Soln 45 Ml (George)) 1 - 2 sprays NA PRN PRN PRN Reason: Nasal Dryness/Congestion Stop: 02/23/24 01:12 Trazodone HCl (Trazodone Hcl 50 Mg Tab) 50 mg PO HS PRN PRN Reason: Insomnia Stop: 02/23/24 21:59 Mental Health & Subst Abuse Tx Psychiatrist [facility] Date Of Appointment With Psychiatric Provider: 03/12/24 Time of Appointment with Psychiatrist: 12:30pm Psychiatric Appointment Comment: in-person Therapist Name of Therapist: MADDY Eaton Therapist's Date of Therapist Appointment: 02/26/24 Time of Therapist Appointment: 10:00am Therapy Appointment Comment: in-person Post Discharge Appointments Primary Care Physician Name Of Family Doctor/PCP: Thu Estrada Specialist Name of Specialist: [facility] Phone Number for Specialist: [phone] Date of Appointment with Specialist: 01/29/24 Time of Appointment with Specialist: 3:15PM Specialty Appointment Comment: Ariadna Varghese [id number] [place] [id number]
[2024-01-27] MEDS: SERTRALINE HCL 50 MG TABLET PO SCH (11:56)
--- NOTE | 2024-01-28 11:27 | Psychiatric Progress Note ---
Date of Service January 28, 2024 Impression / Recommendations Impression SINDI CHIRINOS is a 38-year-old man who currently lives in [place] with his sister, has no prior psychiatric history, and was admitted on 01/24/24 00:22 on a 201 voluntary commitment for concerns of psychosis with paranoia. Diagnostically consistent with unspecified psychosis most likely cannabis or cocaine induced psychosis vs acute stress disorder. Based on new information from his sister, and now his corroboration, also meets criteria for cocaine use disorder. A: Psychiatrically stable but given his sister's concerns about his recent increase in cocaine use, she is not comfortable having him return to her home until he gets substance use treatment and he has no where else to live. Given her request that he get treatment he is agreeable to residential substance use treatment. Tolerating sertraline well. Denying SI, no evidence for overt psychosis nor paranoia nor delusions, psychiatrically stable for starting referral process for residential substance use treatment. Overall, I spent a total of 50 minutes on this case including meeting with the patient, reviewing the chart, nursing report, multidisciplinary team meeting, orders, and documentation. 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 The patient will participate in group, recreational, and milieu therapies and will be offered additional individual and family sessions as clinically appropriate. Trial of guanfacine 0.5mg BID for possible ADHD as well as can help decrease any trauma reactions he may be experiencing and any anxiety relating to recent events - HR is low so may not be able to take, will reasses in AM Would defer antipsychotic as presentation is unclear and he is not currently overtly psychotic and does express wanting to avoid antipsychotics if possible, is aware however that if his symptoms return/worsen this medication would be indicated and is agreeable Inventory Assets Strengths: supportive family, willing to consider treatment options Needs: adjusting to release from detention, diagnostic clarification, additional supports Suicide Risk Level Suicide Risk Level: Low (q15 min observation checks) ( no paranoia nor psychosis, denying SI, feels safe in the hospital, feels able to ask for support) Risk Factors Assessment Male: Yes : No Do You Have Access To A Gun?: No Health Problems: No Mental Health Diagnoses: No Substance Use Disorders: Yes Previous Attempt: No Family History of Suicide: No Previous Psychiatric Hospitalization: Yes Hopelessness: No Protective Factors Assessment : No Responsible for Young Children: No Employed: No Stable Relationships: Yes Supportive Family: Yes Good Rapport with Provider: Yes Absence of Any Risk Factors Above: Yes Interval History Identifying Information SINDI CHIRINOS is a 38-year-old M who currently lives with his sister, has no prior psychiatric history, and was admitted on 01/24/24 00:22 on a 201 voluntary commitment for concerns of psychosis with paranoia. Chief Complaint "I just want to get this behind me to move on". Review of Systems Sleep Information Total Hours of Sleep: 5.25 Sleep Comments: HS Suboxone Meal Information Percent Meal Consumed - Breakfast: 100 Percent Meal Consumed - Lunch: 100 Percent Meal Consumed - Dinner: 100 Subjective Subjective Patient was seen & assessed and interval progress reviewed with treatment team nursing and social work. Attending groups, interacting well with peers. Was on the phone yesterday afternoon. Today reports his mood is "ok". He's a bit discouraged that his sisters feel his psychosis was due to cocaine use as he feels it was more driven by his relationship with his girlfriend but he is willing to get substance use treatment as his sister wants this to happen before he returns to her home. He continues to deny SI, no current symptoms of psychosis. He feels this is improved due to from environment with girlfriend and he doesn't plan to get back together with her. Reviewed recent substance use and he confirms intermittent cannabis use but today discusses recent daily cocaine use via snorting. Reviewed that his cocaine use could certainly have been the cause of his recent psychosis, he notes it has caused some paranoia for him in the past but thinks it was the stress of being with his girlfriend that caused his recent symptoms. He thinks that residential treatment could also be good opportunity to consider tapering off suboxone. Denies any medication side effects from sertraline. Physical Exam Psychiatric Orientation: alert and oriented x 3 Apperance: appropriately dressed and appropriately groomed Eye Contact: good eye contact Motor Behavior: no abnormal motor movements; no psychomotor agitation Speech: normal rate/rhythm/volume of speech Affect: + constricted affect Mood: no depressed mood and no anxious mood Thought Process: goal directed thought process Thought Content: reality based without delusions Suicidal Thoughts: denies suicidal thoughts Homicidal Thoughts: denies homicidal thoughts Hallucinations: no auditory hallucinations and no visual hallucinations Cognition: recent memory grossly intact, remote memory grossly intact and language grossly intact Insight: + limited insight Judgment: + fair judgement Vital Signs (Past 24 Hours) Last Vital Signs Temp 36.6 C 01/28/24 06:00 Pulse 52 L 01/28/24 06:34 Resp 20 01/28/24 06:00 BP 118/76 01/28/24 06:34 Pulse Ox 96 01/28/24 06:00 O2 Del Method Room Air 01/28/24 06:00 Results & Data ([facility]) Current Inpatient Medications Current Inpatient Medications: Current Inpatient Medications Acetaminophen (Acetaminophen 325 Mg Tab) 650 mg PO Q4H PRN PRN Reason: Headache or Minor Fever Stop: 02/23/24 01:12 Al Hydrox/Mg Hydrox/Simethicone (Aluminum/Magnesium Susp 30 Ml Udc) 30 ml PO Q4H PRN PRN Reason: GI Upset Stop: 02/23/24 01:12 Bismuth Subsalicylate (Bismuth Subsalicylate 262 Mg Chew) 2 tab PO Q30M PRN PRN Reason: Loose Stool/Diarrhea Stop: 02/23/24 01:12 Buprenorphine/Naloxone (Buprenorphine/Naloxone 8/2 Mg Tab) 1 tab SL BID SHASHANK Stop: 02/23/24 08:59 Last Admin: 01/28/24 10:56 Dose: 1 tab Hydroxyzine HCl (Hydroxyzine Hcl 25 Mg Tab) 50 mg PO HSZ PRN PRN Reason: Insomnia Stop: 02/23/24 01:12 Hydroxyzine HCl (Hydroxyzine Hcl 25 Mg Tab) 25 mg PO Q4H PRN PRN Reason: Anxiety Stop: 02/23/24 01:12 Magnesium Hydroxide (Magnesium Hydroxide Susp 30 Ml Udc) 30 ml PO DAILY PRN PRN Reason: Constipation Stop: 02/23/24 01:12 Miscellaneous (Remove Nicoderm Patch) 1 each N/A DAILY@0859 [facility] Stop: 02/24/24 08:58 Last Admin: 01/28/24 09:15 Dose: 1 each Nicotine (Nicotine 21 Mg/24 Hr Tdsy) 1 patch TD QAM [facility] Stop: 02/23/24 13:29 Last Admin: 01/28/24 09:07 Dose: 1 patch Nicotine Polacrilex (Nicotine Polacrilex 2 Mg Gum) 2 piece MT PRN PRN PRN Reason: Nicotine Withdrawal Symptoms Stop: 02/23/24 01:12 Last Admin: 01/25/24 09:44 Dose: 2 piece Sertraline HCl (Sertraline Hcl 50 Mg Tablet) 50 mg PO QAM [facility] Stop: 02/26/24 11:59 Last Admin: 01/28/24 09:07 Dose: 50 mg Sodium Chloride (Sodium Chloride 0.65% Na Soln 45 Ml (Harris)) 1 - 2 sprays NA PRN PRN PRN Reason: Nasal Dryness/Congestion Stop: 02/23/24 01:12 Trazodone HCl (Trazodone Hcl 50 Mg Tab) 50 mg PO HS PRN PRN Reason: Insomnia Stop: 02/23/24 21:59 Mental Health & Subst Abuse Tx Psychiatrist [facility] Date Of Appointment With Psychiatric Provider: 03/12/24 Time of Appointment with Psychiatrist: 12:30pm Psychiatric Appointment Comment: in-person Therapist Name of Therapist: MADDY Eaton Therapist's Date of Therapist Appointment: 02/26/24 Time of Therapist Appointment: 10:00am Therapy Appointment Comment: in-person Post Discharge Appointments Primary Care Physician Name Of Family Doctor/PCP: Thu Estrada Specialist Name of Specialist: [facility] Phone Number for Specialist: [phone] Date of Appointment with Specialist: 01/29/24 Time of Appointment with Specialist: 3:15PM Specialty Appointment Comment: Ariadna Varghese [id number] [place] [id number]
--- NOTE | 2024-01-29 09:08 | Psychiatric Progress Note ---
Date of Service January 29, 2024 Impression / Recommendations Impression SINDI CHIRINOS is a 38-year-old man who currently lives in [place] with his sister, has no prior psychiatric history, and was admitted on 01/24/24 00:22 on a 201 voluntary commitment for concerns of psychosis with paranoia. Diagnostically consistent with unspecified psychosis most likely cannabis or cocaine induced psychosis vs acute stress disorder. Based on new information from his sister, and now his corroboration, also meets criteria for cocaine use disorder. A: Psychiatrically stable, pending residential substance use tx. He was accepted to residential substance use treatment with plan for transfer tomorrow once a bed is available. Chest x-ray ordered given history of positive TB test, no evidence of any lung involvement. Given ongoing constipation, likely due to a combination of side effects from Suboxone and initiation of sertraline, will start senna s which he consents to. Overall, I spent a total of 25 minutes on this case including meeting with the patient, reviewing the chart, nursing report, multidisciplinary team meeting, orders, and documentation. 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 Start Senna-S BID. Continue sertraline. Plan for residential substance use treatment once bed is available. 01/28/2024: Continue sertraline, begin process of referrals for residential substance use treatment 01/27/2024: Start sertraline 50mg daily Discontinue Adderall Discontinue guanfacine 01/26/2024: The patient was admitted to the [facility] ([facility]) on q15 min checks (behavioral with suicide precautions) for safety. The patient will participate in group, recreational, and milieu therapies and will be offered additional individual and family sessions as clinically appropriate. Trial of guanfacine 0.5mg BID for possible ADHD as well as can help decrease any trauma reactions he may be experiencing and any anxiety relating to recent events - HR is low so may not be able to take, will reasses in AM Would defer antipsychotic as presentation is unclear and he is not currently overtly psychotic and does express wanting to avoid antipsychotics if possible, is aware however that if his symptoms return/worsen this medication would be indicated and is agreeable Inventory Assets Strengths: supportive family, willing to consider treatment options Needs: adjusting to release from intermediate, diagnostic clarification, additional supports Suicide Risk Level Suicide Risk Level: Low (q15 min observation checks) ( no paranoia nor psychosis, denying SI, feels safe in the hospital, feels able to ask for support) Risk Factors Assessment Male: Yes : No Do You Have Access To A Gun?: No Health Problems: No Mental Health Diagnoses: No Substance Use Disorders: Yes Previous Attempt: No Family History of Suicide: No Previous Psychiatric Hospitalization: Yes Hopelessness: No Protective Factors Assessment : No Responsible for Young Children: No Employed: No Stable Relationships: Yes Supportive Family: Yes Good Rapport with Provider: Yes Absence of Any Risk Factors Above: Yes Interval History Identifying Information SINDI CHIRINOS is a 38-year-old M who currently lives with his sister, has no prior psychiatric history, and was admitted on 01/24/24 00:22 on a 201 voluntary commitment for concerns of psychosis with paranoia. Chief Complaint "I put myself in this situation so now I have to deal with it". Review of Systems Sleep Information Total Hours of Sleep: 5.45 Sleep Comments: HS Suboxone Meal Information Percent Meal Consumed - Breakfast: 100 Percent Meal Consumed - Lunch: 100 Percent Meal Consumed - Dinner: 100 Subjective Subjective Patient was seen & assessed and interval progress reviewed with treatment team nursing and social work. Spends a lot of time on the phone, pleasant and appropriate with peers. Today reports his mood is "alright". He spoke with residential treatment facility and remains in support of plan for treatment though feels some of this is due to having to seek treatment to show his family that he's stable. He denies any side effects from the sertraline except some constipation which he has been experiencing while on suboxone and he feels it might be a little worse. He feels his sleep is stable. Physical Exam Psychiatric Orientation: alert and oriented x 3 Apperance: appropriately dressed and appropriately groomed Eye Contact: good eye contact Motor Behavior: no abnormal motor movements; no psychomotor agitation Speech: normal rate/rhythm/volume of speech Affect: + constricted affect Mood: no depressed mood and no anxious mood Thought Process: goal directed thought process Thought Content: reality based without delusions Suicidal Thoughts: denies suicidal thoughts Homicidal Thoughts: denies homicidal thoughts Hallucinations: no auditory hallucinations and no visual hallucinations Cognition: recent memory grossly intact, remote memory grossly intact and language grossly intact Insight: + limited insight Judgment: + fair judgement Vital Signs (Past 24 Hours) Last Vital Signs Temp 36.6 C 01/29/24 06:48 Pulse 56 L 01/29/24 06:48 Resp 16 01/29/24 06:48 BP 118/75 01/29/24 06:49 Pulse Ox 97 01/29/24 06:48 O2 Del Method Room Air 01/29/24 06:48 Results & Data ([facility]) Current Inpatient Medications Current Inpatient Medications: Current Inpatient Medications Acetaminophen (Acetaminophen 325 Mg Tab) 650 mg PO Q4H PRN PRN Reason: Headache or Minor Fever Stop: 02/23/24 01:12 Al Hydrox/Mg Hydrox/Simethicone (Aluminum/Magnesium Susp 30 Ml Udc) 30 ml PO Q4H PRN PRN Reason: GI Upset Stop: 02/23/24 01:12 Bismuth Subsalicylate (Bismuth Subsalicylate 262 Mg Chew) 2 tab PO Q30M PRN PRN Reason: Loose Stool/Diarrhea Stop: 02/23/24 01:12 Buprenorphine/Naloxone (Buprenorphine/Naloxone 8/2 Mg Tab) 1 tab SL BID [facility] Stop: 02/23/24 08:59 Last Admin: 01/28/24 21:14 Dose: 1 tab Hydroxyzine HCl (Hydroxyzine Hcl 25 Mg Tab) 50 mg PO HSZ PRN PRN Reason: Insomnia Stop: 02/23/24 01:12 Hydroxyzine HCl (Hydroxyzine Hcl 25 Mg Tab) 25 mg PO Q4H PRN PRN Reason: Anxiety Stop: 02/23/24 01:12 Magnesium Hydroxide (Magnesium Hydroxide Susp 30 Ml Udc) 30 ml PO DAILY PRN PRN Reason: Constipation Stop: 02/23/24 01:12 Miscellaneous (Remove Nicoderm Patch) 1 each N/A DAILY@0859 [facility] Stop: 02/24/24 08:58 Last Admin: 01/28/24 09:15 Dose: 1 each Nicotine (Nicotine 21 Mg/24 Hr Tdsy) 1 patch TD QAM [facility] Stop: 02/23/24 13:29 Last Admin: 01/28/24 09:07 Dose: 1 patch Nicotine Polacrilex (Nicotine Polacrilex 2 Mg Gum) 2 piece MT PRN PRN PRN Reason: Nicotine Withdrawal Symptoms Stop: 02/23/24 01:12 Last Admin: 01/28/24 17:42 Dose: 2 piece Sertraline HCl (Sertraline Hcl 50 Mg Tablet) 50 mg PO QAM [facility] Stop: 02/26/24 11:59 Last Admin: 01/29/24 08:51 Dose: 50 mg Sodium Chloride (Sodium Chloride 0.65% Na Soln 45 Ml (Simpson)) 1 - 2 sprays NA PRN PRN PRN Reason: Nasal Dryness/Congestion Stop: 02/23/24 01:12 Trazodone HCl (Trazodone Hcl 50 Mg Tab) 50 mg PO HS PRN PRN Reason: Insomnia Stop: 02/23/24 21:59 Mental Health & Subst Abuse Tx Psychiatrist [facility] Date Of Appointment With Psychiatric Provider: 03/12/24 Time of Appointment with Psychiatrist: 12:30pm Psychiatric Appointment Comment: in-person Therapist Name of Therapist: MADDY Eaton Therapist's Date of Therapist Appointment: 02/26/24 Time of Therapist Appointment: 10:00am Therapy Appointment Comment: in-person Post Discharge Appointments Primary Care Physician Name Of Family Doctor/PCP: Thu Estrada Specialist Name of Specialist: [facility] Phone Number for Specialist: [phone] Date of Appointment with Specialist: 01/29/24 Time of Appointment with Specialist: 3:15PM Specialty Appointment Comment: Ariadna Varghese [id number] [phone]
--- NOTE | 2024-01-29 10:49 | XRay Report ---
SINGLE VIEW CHEST CLINICAL HISTORY: +PPD FINDINGS: 2 AP, portable, upright chest radiographs are obtained. No prior studies are available for comparison at the time of dictation. The cardiomediastinal silhouette is unremarkable. The lungs and pleural spaces are clear. No pneumothorax is seen. The bony thorax is grossly intact. IMPRESSION: No active disease in the chest. ACT 112: Negative or not required by law. Electronically signed by: Monty Sales M.D. 01/29/2024 10:48 AM
[2024-01-29] MEDS: DOCUSATE SODIUM/SENNA 50/8.6MG TAB PO SCH (15:23)
--- NOTE | 2024-01-30 09:06 | Discharge Summary ---
Date of Service January 30, 2024 History of Present Illness 38 yr old M who presented to ED due to paranoia. Patients sister was present at bedside while he was in the ED - she reported that he has not been sleeping, has been paranoid and bizarre in behavior. Possibly has been hearing voices but this is unclear. Sister also reported that patient has been going into people's homes "to get help" from whoever he thinks is after him. Had recent admission at [facility] for similar reasons, discharged several days prior. Patient is pleasant and cooperatve throughout interview. He denies AVH, though does describe recent paranoia and some IOR. He describes this as all being related to a relationship he is in the past few months - it seems that he has been paranoid about his gf plotting against him in some way, or working together with someone that is after him. Describes statements made by her or things on her phone that he interprets as having a sinister meaning, says that this has been increasingly more distressing in particular as he has never experienced something like this before. Reports no prior psychiatric history. Says this all feels "overwhelming" because it is such a new experience. Also released from retirement Apr 2023 after serving 13 years. Of note, patient is able to identify that his paranoia is not reality based - when he talks about it, he does seem to have difficulty with not becoming engrossed by the paranoia, but is observed to spontaneously recognize this and self-redirect. Denies paranoia or other symptoms of psychosis outside of this. Denies AVH. Denies depression. Denies anxiety outside of that relating to the above paranoia. He also reports that he was seeing an outpatient psychiatrist who diagnosed him with ADHD and started him on Adderall XR. Says that he was initially hesitant, but that once he started the medication he felt much "clearer" and able to focus without the excessive distractibility that usually interferes. Describes racing thoughts, inattention, restlessness and distractibility since childhood - says that after starting the medication this all improved and he felt calmer and better able to manage restlessness & impulsivity. Sleep reportedly also improved - has always had difficulty falling asleep, but when taking the Adderall XR was able to fall asleep more easily and felt well rested in the mornings. It seems that for some reason the prescription was stopped, possibly due to a missed appointment or something of that nature, and he describes these symptoms quickly returning again, including difficulty sleeping. Some time after this it seems that paranoia and odd behaviors started, with worsening leading up to hospitalization at [facility] at which time he was started on Zyprexa. Describes feeling overly sedated by it and slow, did not want to continue taking it once out of the hospital. Saw his psychiatrist at that point and it seems that they did not want to restart the Adderall due to his being hospitalized for psychosis. Did provide patient today with psychoeducation as to why this would be a concern, which he was receptive to. Patient says he would prefer not to take something like zyprexa due to significant negative effects, however is agreeable to whatever treatment plan is recommended. To note, while on the unit he has been calm and cooperative. Initially was in his room and guarded, but progressively acclimating and participating in groups. Has not been observed talking to himself, does not appear internally preoccupied - is overall interacting in the milieu appropriately. Physical Exam Vital Signs (Past 24 Hours) Last Vital Signs Temp 35.8 C L 01/30/24 06:32 Pulse 62 01/30/24 06:32 Resp 16 01/30/24 06:32 BP 125/78 01/30/24 06:32 Pulse Ox 97 01/29/24 06:48 O2 Del Method Room Air 01/29/24 06:48 Principal Diagnosis Unspecified psychosis Psychiatric Data See daily stay summary. In short, patient was engaged with the social/therapeutic milieu of the unit, safety was maintained and the patient was cooperative with care. Medication changes included initiation of sertraline for anxiety/acute stress disorder and senna/colace for constipation and they tolerated this well. He declined a support session but he maintained frequent contact with his sisters who were involved with his care and safety plan was completed prior to discharge. They participated in safety planning and in discussions about ways to seek support and recognizing warning signs and utilizing coping skills. Reviewed ways to have their safety plan and contacts easily available should thoughts of SI re-emerge in the future. Reviewed importance of seeking emergency care should SI intensify, worsen or should they feel unsafe in the future which they agree to do. On the day of discharge they stated their mood was "good" and remained future-oriented including attending residential substance use treatment and eventually then engaging in aftercare appointments for psychiatry, therapy and primary care. Day of Discharge Assessment Today the patient voices readiness for discharge. They note improvement in mood and anxiety. They deny thoughts of harm to self or others. Thoughts are organized and they are clinically improved from admission. There is no evidence of psychosis. They improved in the hospital with support [and medication adjustments]. They agree to take medications as prescribed and keep follow-up appointments. At the time of the discharge they are deemed to be stable and appropriate for outpatient level of care. They are not deemed to be at imminent risk of harm to self or others. They are aware of emergency and crisis services. Knows to call 911 or go to nearest emergency care center if in a crisis which cannot be handled as an outpatient. Suicide risk assessment: Acute risk is low given improvement in mood and denial of SI, lack of access to lethal means, plan to avoid substance use, improvement in sleep, hopefulness and improvement in psychosis. Chronic risk is moderate given some non-modifiable risk factors: psychiatric co-morbid diagnoses, periods of impulsivity, prior psychiatric hospitalizations, limited social support childhood trauma but also with protective factors including: sense of responsibility to family and social supports, supportive family, outpatient care in place, positive coping skills, positive problem solving, willingness to engage with treatment and self- observation. Counseled on ways to reduce acute and chronic risk including engaging with outpatient providers, using safety plan if needed, utilizing supports, taking medication, and using coping skills. Modifiable risk factors of psychosis were addressed during hospitalization through development of new coping skills, safety planning, and medication adjustments. Discharge physical exam: See admission H&P, MSE per above and day of discharge summary. Overall, I spent a total of 35 minutes on this case including meeting with the patient, reviewing the chart, nursing report, multidisciplinary team meeting, discharge orders, anticipatory planning, safety planning, risk assessment and documentation. Transition of Care Transition Of Care Record: was reviewed with the patient Advance Directives Advance Directives Information Provided: Yes Advance Directives: No Mental Health Advance Directive: No Advance Directives on File: No Living Will: No Power of Song Writer: No Advance Directives Reason:: Declines as Mental Health Visit. Suicide Risk Level Suicide Risk Level Comments: Acute risk is low, see further assessment above Risk Factors Assessment Male: Yes : No Do You Have Access To A Gun?: No Health Problems: No Mental Health Diagnoses: No Substance Use Disorders: Yes Previous Attempt: No Family History of Suicide: No Previous Psychiatric Hospitalization: Yes Hopelessness: No Protective Factors Assessment : No Responsible for Young Children: No Employed: No Stable Relationships: Yes Supportive Family: Yes Good Rapport with Provider: Yes Discharge Data Lab Results 01/23/24 01/23/24 01/23/24 18:54 20:25 22:00 WBC 4.53 L RBC 4.06 L Hgb 12.1 L Hct 37.1 L MCV 91.4 MCH 29.8 MCHC 32.6 RDW Std Deviation 40.5 RDW Coeff of Yazmin 12.0 Plt Count 211 MPV 9.7 Immature Gran % (Auto) 0.2 Neut % (Auto) 58.7 Lymph % (Auto) 29.4 Marion % (Auto) 8.8 Eos % (Auto) 2.2 Baso % (Auto) 0.7 Neut # (Auto) 2.66 Lymph # (Auto) 1.33 Marion # (Auto) 0.40 Eos # (Auto) 0.10 Baso # (Auto) 0.03 Immature Gran # (Auto) 0.01 Sodium 139 Potassium 4.0 Chloride 104 Carbon Dioxide 30 Anion Gap 5 BUN 17 Creatinine 1.12 Est Cr Clr Drug Dosing 99.1 eGFR 85.17 BUN/Creatinine Ratio 15.2 Glucose 123 H Calcium 8.6 Total Bilirubin 0.3 AST 31 ALT 20 Alkaline Phosphatase 51 Total Protein 6.6 Albumin 4.0 Globulin 2.6 Albumin/Globulin Ratio 1.5 TSH 1.014 Urine Color Yellow Urine Appearance Clear Urine pH 7.0 Ur Specific Slater 1.020 Urine Protein Negative Urine Glucose (UA) Negative Urine Ketones Trace H Urine Blood Negative Urine Nitrite Negative Urine Bilirubin Negative Urine Urobilinogen Negative Ur Leukocyte Esterase Negative Nasal Screen MRSA (PCR) Negative Salicylates < 3.0 L Urine Opiates Screen Neg Ur Methadone, Qual Neg Urine Fentanyl Screen Neg Acetaminophen < 3 L Urine Barbiturates Neg Ur Phencyclidine (PCP) Neg U Amphetamin/Meth Scrn Neg MDMA (Ecstasy) Screen Neg U Benzodiazepines Scrn Neg Ur Cocaine Metabolite Neg U Marijuana (THC) Screen Pos H U Marijuana THC Carboxy 42 H Drug Screen Comment SEE NOTE Ethyl Alcohol mg/dL < 10.0 SARS-CoV-2, RNA, NAAT NEGATIVE 01/26/24 19:54 WBC 4.95 RBC 4.46 L Hgb 13.2 L Hct 41.3 L MCV 92.6 MCH 29.6 MCHC 32.0 RDW Std Deviation 40.2 RDW Coeff of Yazmin 11.9 Plt Count 234 MPV 9.6 Immature Gran % (Auto) 0.2 Neut % (Auto) 66.1 Lymph % (Auto) 22.4 Marion % (Auto) 8.9 Eos % (Auto) 1.6 Baso % (Auto) 0.8 Neut # (Auto) 3.27 Lymph # (Auto) 1.11 L Marion # (Auto) 0.44 Eos # (Auto) 0.08 Baso # (Auto) 0.04 Immature Gran # (Auto) 0.01 Sodium Potassium Chloride Carbon Dioxide Anion Gap BUN Creatinine Est Cr Clr Drug Dosing eGFR BUN/Creatinine Ratio Glucose Calcium Total Bilirubin AST ALT Alkaline Phosphatase Total Protein Albumin Globulin Albumin/Globulin Ratio TSH Urine Color Urine Appearance Urine pH Ur Specific Slater Urine Protein Urine Glucose (UA) Urine Ketones Urine Blood Urine Nitrite Urine Bilirubin Urine Urobilinogen Ur Leukocyte Esterase Nasal Screen MRSA (PCR) Salicylates Urine Opiates Screen Ur Methadone, Qual Urine Fentanyl Screen Acetaminophen Urine Barbiturates Ur Phencyclidine (PCP) U Amphetamin/Meth Scrn MDMA (Ecstasy) Screen U Benzodiazepines Scrn Ur Cocaine Metabolite U Marijuana (THC) Screen U Marijuana THC Carboxy Drug Screen Comment Ethyl Alcohol mg/dL SARS-CoV-2, RNA, NAAT Hospital Course (1) Acute stress disorder: (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 Start Senna-S BID. Continue sertraline. Plan for residential substance use treatment once bed is available. 01/28/2024: Continue sertraline, begin process of referrals for residential substance use treatment 01/27/2024: Start sertraline 50mg daily Discontinue Adderall Discontinue guanfacine 01/26/2024: The patient was admitted to the [facility] (locked inpatient mental health unit) on q15 min checks (behavioral with suicide precautions) for safety. The patient will participate in group, recreational, and milieu therapies and will be offered additional individual and family sessions as clinically appropriate. Trial of guanfacine 0.5mg BID for possible ADHD as well as can help decrease any trauma reactions he may be experiencing and any anxiety relating to recent events - HR is low so may not be able to take, will reasses in AM Would defer antipsychotic as presentation is unclear and he is not currently overtly psychotic and does express wanting to avoid antipsychotics if possible, is aware however that if his symptoms return/worsen this medication would be indicated and is agreeable Mental Health & Subst Abuse Tx Psychiat[facility] Date Of Appointment With Psychiatric Provider: 03/12/24 Time of Appointment with Psychiatrist: 12:30pm Psychiatric Appointment Comment: in-person Therapist Name of Therapist: MADDY Eaton Therapist's Date of Therapist Appointment: 02/26/24 Time of Therapist Appointment: 10:00am Therapy Appointment Comment: in-person Post Discharge Appointments Primary Care Physician Name Of Family Doctor/PCP: Thu Estrada Specialist Name of Specialist: [facility] Phone Number for Specialist: [phone] Date of Appointment with Specialist: 01/29/24 Time of Appointment with Specialist: 3:15PM Specialty Appointment Comment: [address] [place] [address] [address] [place] [id number] Discharge Plan Discharge Items Patient Disposition: Home - Self-Care Reason For Visit: UNSPECIFIED PSYCHOSIS Discharge Diagnosis: Unspecified Psychosis Activity: Resume your previous activity Non-emergency contact: Primary Care Provider, Psychiatrist and Therapist Call non-emergency contact if: you have any medication questions and your symptoms worsen Follow-up/Referrals: Blayne Lloyd MD [Primary Care Provider] - Diet: Regular Addtl Attending Provider Instructions: You will be discharging to [facility] for residential substance use treatment. SPECIAL CARE INSTRUCTIONS: 1. Follow through with your scheduled aftercare appointments. If unable to keep an appointment, please call to reschedule. 2. Take your medication only as prescribed. Medication should not be changed or stopped without the approval of your doctor. In the event of worsening symptoms or concerns about side effects, contact your doctor immediately. 3. Utilize new healthy coping skills, anger management skills, and stress management skills learned during your hospitalization. Journal feelings and process them with a support person. Identify stressors or situations that may result in relapse, deterioration or inappropriate behaviors and develop a plan to deal with those issues. 4. If your coping skills are ineffective and you are in crisis, contact your outpatient providers for direction. If unable to reach your providers, please call the [facility] CRISIS LINE AT , go to the [facility] walk-in center at [address], [address], [place], or go to the closest Emergency Room. 5. Avoid alcohol and un-prescribed drugs. 6. You have been provided with the Mental Health Advance Directives Pamphlet for your review. 7. Your condition is stable for discharge to outpatient level of care, but recovery is an ongoing process. Ifthoughts to harm yourself or others return, follow the safety plan developed during your stay. Planning for a safe return home includes securing weapons. Our treatment team recommends weaponsbe removed from the home until your outpatient provider reassesses your progress. In rare cases where the items themselvescannot be removed, guns and ammunitionshould be secured separatelyand keys stored by a reliable personoutside of the home. If you were admitted on an involuntary commitment, the police or other legal authorities may be involved in this process. AFTERCARE APPOINTMENTS: * Please call your insurance company prior to your scheduled appointment to confirm your aftercare providers are covered. Take your insurance information to your appointments. WHO TO CALL AND WHEN: Medical Emergencies: For questions or emergencies related to your hospital stay, please contact the Inpatient Behavioral Health Unit at [phone]. A psychiatric technician is on-call 07/11 for the Behavioral Health Unit for emergencies At any time you feel your situation is an emergency, you may also call 911 immediately. National Crisis Hotline: 370 Pending Studies at Discharge: No Stand-Alone Forms: My [employer], Smoking Cessation Medications and DC Order Prescriptions: New nicotine (polacrilex) [Nicorette] 2 mg Gum 2 mg MT PRN PRN (Reason: nicotine cravings) Qty: 20 0RF sennosides-docusate sodium [Senokot-S] 8.6-50 mg Tablet 1 tab PO BID Qty: 1 0RF nicotine [Nicoderm CQ] 21 mg/24 hr Patch 24 Hour 1 patch transdermal QAM Qty: 7 0RF sertraline 50 mg Tablet 50 mg PO QAM Qty: 1 0RF Continued buprenorphine-naloxone 8-2 mg tablet, sublingual 1 tab SUBLINGUAL BID Discontinued olanzapine 2.5 mg tablet 2.5 mg PO BID Patient Comments: Takes occassionally Discharge Orders: Discharge Order (Routine); Ordered 01/30/24 Ordered By: Sabina Montenegro Admission Data Admit Date/Time: 01/24/24 00:22 Attending Provider: Sabina Montenegro Admit Provider: Trish Best Primary Care Provider: Blayne Lloyd Other Interventions: PSY Interdisciplinary Discharge Planning Last Done: 01/30/24 11:33 Coding Level of Care Code 57343 D/C day mgmt > 30 min Diagnoses Acute stress disorder F43.0 Cocaine-induced psychotic disorder F14.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
[2024-01-30 16:02] LABS: Quantiferon Mitogen-NIL 5.96 IU/mL; Quantiferon NIL 0.01 IU/mL; Quantiferon TB Gold Plus POSITIVE (NEGATIVE); Quantiferon TB2-NIL 0.46 IU/mL
== END 2024-01-30 16:15 | disposition alcohol treatment (31) | DRG 880 ==
LOC: ED 18:06 → SUATTDRO 01-24 00:22 → 3S 01-24 00:22